=== PATIENT | male | born 1960 | race Caucasian/White ===

== ENCOUNTER 2017-06-09 12:14 | Emergency (ER) | payer BC, OTHER ==
[~2017-06-09] VITALS: Ht 175.3 cm; Wt 105.1 kg
[~2017-06-09 12:14] MED LIST: OMEG10007 PO
[2017-06-09 12:23] VITALS: TEMP 36.7; Ht 175.3 cm; Wt 105.1 kg
[2017-06-09] MEDS ORDERED: SODIUM CHLORIDE 0.9% 1000ML 1,000 ML IV STA (13:32)
[2017-06-09] MEDS ORDERED: KETOROLAC TROMETHAMINE 30 MG/ML VIAL IV STA (13:32)
[2017-06-09] MEDS ORDERED: ONDANSETRON INJ 2 MG/ML 2 ML VIAL IV STA (13:32)
[2017-06-09] MEDS ORDERED: ONDANSETRON 8 MG/54 ML D5W IV STA (13:32)
[2017-06-09 14:33] LABS: BASO % 0.2 %; BASO ABS # 0.03 K/uL (0-0.2); EOS % 0.3 %; EOS ABS # 0.04 K/uL (0-0.5); HEMATOCRIT 46.8 % (42-52); HEMOGLOBIN 16.2 g/dL (14.0-18.0); IG# 0.04 K/uL (0.00-0.02); LYMPH % 6.7 %; LYMPH ABS # 0.88 K/uL (1.2-3.4); MEAN CELL VOLUME 94.5 fL (80-100); MEAN CORPUSCULAR HEMOGLOBIN 32.7 pg (25-34); MEAN CORPUSCULAR HGB CONC 34.6 g/dl (32-36); MEAN PLATELET VOLUME 11.3 fL (7.4-10.4); MONO % 5.8 %; MONO ABS # 0.76 K/uL (0.11-0.59); NEUT % 86.7 %; NEUT ABS # 11.39 K/uL (1.4-6.5); PLATELET COUNT 193 K/uL (130-400); RED CELL DISTRIBUTION WIDTH CV 13.3 % (11.5-14.5); RED CELL DISTRIBUTION WIDTH SD 45.4 fL (36.4-46.3); WHITE BLOOD COUNT 13.14 K/uL (4.8-10.8)
[2017-06-09 14:51] LABS: ALBUMIN 4.6 gm/dl (3.4-5.0); CALCIUM 9.3 mg/dl (8.5-10.1); CREATININE 1.31 mg/dl (0.60-1.40)
--- NOTE | 2017-06-09 14:51 | DIAGNOSTIC IMAGING REPORT ---
[facility] CLINICAL HISTORY: Nephrolithiasis. FINDINGS: 2 AP supine abdominal radiographs are correlated with abdominal CT dated 01/08/2016. There is a nonobstructed abdominal bowel gas pattern. A 6 mm calcification projects over the proximal left ureter below the transverse process of L2. This likely represents an obstructing ureteral stone. At least 3 additional nonobstructing left renal calculi are identified measuring up to 4 mm. A 6 mm nonobstructing calculus is noted in the right kidney. Phleboliths are seen in the pelvis. The bony structures appear intact. IMPRESSION: 1. A 6 mm calculus projecting over the left proximal ureter likely represents an obstructing ureteral stone. 2. Additional bilateral nonobstructing renal calculi as above. Electronically signed by: Cristino Baez M.D. 06/09/2017 2:50 PM Dictated Date/Time: 06/09/2017 2:48 PM
[2017-06-09 14:54] LABS: TOTAL PROTEIN 7.4 gm/dl (6.4-8.2)
[2017-06-09] MEDS ORDERED: OXYC1TAB3 PO (15:15)
[2017-06-09] MEDS ORDERED: TAMS0.4C38 PO (15:15)
[2017-06-09 16:10] VITALS: BP 114/74; PULSE 74; O2SAT 96
--- NOTE | 2017-06-09 21:48 | EMERGENCY ROOM VISIT NOTE ---
History First contact with patient: 13:26 Chief Complaint: KIDNEY STONE Stated Complaint: KIDNEY STONE ON LEFT SIDE History of Present Illness The patient is a 57 year old male who presents to the Emergency Room with complaints of left-sided flank pain that started this morning between 730 and 8 AM. The patient reports that the pain initially was intermittent in nature, but is now constant. The patient is concerned that he has another kidney stone. The patient has had multiple stones in the past with his last stone approximately 2-1/2-3 years ago. The patient has seen Dr. Dennis in the past. The patient has had some nausea without vomiting. He denies any bloody urine or significant abdominal pain. He rates his discomfort a 5 out of 10. The patient denies any pain extending into the chest, shortness of breath or fever. He has no alleviating or aggravating factors for the pain. Review of Systems HEENT: Denies dizziness, visual problems, hearing loss, tinnitus. Denies difficulty swallowing or oral lesions. PULMONARY: Denies cough, shortness of breath, sputum production or hemoptysis. CARDIOVASCULAR: Denies chest pain, palpitations, dyspnea on exertion, orthopnea or peripheral edema. GASTROINTESTINAL: Denies diarrhea, constipation, nausea, vomiting, or abdominal pain. GENITOURINARY: Denies dysuria, frequency, urgency or nocturia. Otherwise see HPI. NEUROLOGIC: Denies history of epilepsy, CVA, TIA or chronic headaches. MUSCULOSKELETAL: Denies history of joint tenderness/swelling. SKIN: Denies rashes or lesions. PSYCHIATRIC: Denies history of depression or mental illness. ENDOCRINE: Denies history of diabetes or thyroid disorders. Past Medical/Surgical History Medical Problems: (1) Calculus Of Kidney With Calculus Of Ureter (2) Calculus Of Ureter (3) Dvrtclos Of Lg Int W/O Perforation Or Abscess W/O Bleeding (4) Other Hemorrhoids (5) Unilat Inguinal Hernia Surgical Problems: (1) No history of previous surgery Family History FH: heart disease FH: kidney disease Social History Smoking Status: Never Smoker Alcohol Use: none Marital Status: Occupation Status: employed Current/Historical Medications Scheduled Tamsulosin Hcl (Flomax), 0.4 MG PO DAILY Scheduled PRN Oxycodone Ir (Roxicodone Ir), 1-2 TAB PO Q4H PRN for Pain Physical Exam Vital Signs Date Time Temp Pulse Resp B/P (MAP) Pulse Ox O2 Delivery O2 Flow Rate FiO2 06/09/17 16:10 74 18 114/74 96 06/09/17 14:53 68 18 122/70 98 Room Air 06/09/17 12:23 36.7 80 20 126/84 97 Room Air Physical Exam CONSTITUTIONAL: Healthy and well nourished. Alert and oriented X 3 with positive affect. Patient appears in mild to moderate discomfort. HEENT: Normocephalic, atraumatic. Pupils equal, round and reactive. No scleral icterus or conjunctival injection. NECK: Full active range of motion without discomfort. RESPIRATORY: Clear to auscultation bilaterally with no wheezing, crackles, rhonchi or stridor. CARDIOVASCULAR: Regular rate and rhythm with no murmurs, rubs or gallops. GASTROINTESTINAL: Bowel sounds present in all quadrants. Patient has no anterior abdominal tenderness to palpation, including left lower quadrant tenderness. Negative CVA tenderness. MUSCULOSKELETAL: Full range of motion of all joints without discomfort. No tenderness to palpation through the posterior ribs or central lumbar spine, paraspinous muscles or SI joints. Range of motion of the back does not worsen discomfort. INTEGUMENTARY: No rash or other significant dermatologic conditions noted. HEMATOLOGIC: No ecchymosis or petechiae noted. NEUROLOGIC: No focal neurologic deficits noted. Medical Decision & Procedures ER Provider Diagnostic Interpretation: My interpretation of a KUB x-ray shows a 6 mm calculus in the left proximal ureter. Patient has additional bilateral renal calculi as discussed in the following radiologist report: KUB CLINICAL HISTORY: Nephrolithiasis. FINDINGS: 2 AP supine abdominal radiographs are correlated with abdominal CT dated 01/08/2016. There is a nonobstructed abdominal bowel gas pattern. A 6 mm calcification projects over the proximal left ureter below the transverse process of L2. This likely represents an obstructing ureteral stone. At least 3 additional nonobstructing left renal calculi are identified measuring up to 4 mm. A 6 mm nonobstructing calculus is noted in the right kidney. Phleboliths are seen in the pelvis. The bony structures appear intact. IMPRESSION: 1. A 6 mm calculus projecting over the left proximal ureter likely represents an obstructing ureteral stone. 2. Additional bilateral nonobstructing renal calculi as above. Laboratory Results 06/09/17 13:50 Red Blood Count 4.95, Mean Corpuscular Volume 94.5, Mean Corpuscular Hemoglobin 32.7, Mean Corpuscular Hemoglobin Concent 34.6, Mean Platelet Volume 11.3, Neutrophils (%) (Auto) 86.7, Lymphocytes (%) (Auto) 6.7, Monocytes (%) (Auto) 5.8, Eosinophils (%) (Auto) 0.3, Basophils (%) (Auto) 0.2, Neutrophils # (Auto) 11.39, Lymphocytes # (Auto) 0.88, Monocytes # (Auto) 0.76, Eosinophils # (Auto) 0.04, Basophils # (Auto) 0.03 06/09/17 13:50 Test 06/09/17 13:45 06/09/17 13:50 Urine Color DK YELLOW Urine Appearance CLEAR (CLEAR) Urine pH 5.0 (4.5-7.5) Urine Specific [place] 1.028 (1.000-1.030) Urine Protein TRACE (NEG) Urine Glucose (UA) NEG (NEG) Urine Ketones TRACE (NEG) Urine Occult Blood 3+ (NEG) Urine Nitrite NEG (NEG) Urine Bilirubin NEG (NEG) Urine Urobilinogen NEG (NEG) Urine Leukocyte Esterase NEG (NEG) Urine WBC (Auto) 1-5 /hpf (0-5) Urine RBC (Auto) 5-10 /hpf (0-4) Urine Hyaline Casts (Auto) 1-5 /lpf (0-5) Urine Epithelial Cells (Auto) 10-20 /lpf (0-5) Urine Bacteria (Auto) NEG (NEG) White Blood Count 13.14 K/uL (4.8-10.8) Red Blood Count 4.95 M/uL (4.7-6.1) Hemoglobin 16.2 g/dL (14.0-18.0) Hematocrit 46.8 % (42-52) Mean Corpuscular Volume 94.5 fL (80-100) Mean Corpuscular Hemoglobin 32.7 pg (25-34) Mean Corpuscular Hemoglobin Concent 34.6 g/dl (32-36) Platelet Count 193 K/uL (130-400) Mean Platelet Volume 11.3 fL (7.4-10.4) Neutrophils (%) (Auto) 86.7 % Lymphocytes (%) (Auto) 6.7 % Monocytes (%) (Auto) 5.8 % Eosinophils (%) (Auto) 0.3 % Basophils (%) (Auto) 0.2 % Neutrophils # (Auto) 11.39 K/uL (1.4-6.5) Lymphocytes # (Auto) 0.88 K/uL (1.2-3.4) Monocytes # (Auto) 0.76 K/uL (0.11-0.59) Eosinophils # (Auto) 0.04 K/uL (0-0.5) Basophils # (Auto) 0.03 K/uL (0-0.2) RDW Standard Deviation 45.4 fL (36.4-46.3) RDW Coefficient of Variation 13.3 % (11.5-14.5) Immature Granulocyte % (Auto) 0.3 % Immature Granulocyte # (Auto) 0.04 K/uL (0.00-0.02) Anion Gap 9.0 mmol/L (3-11) Est Creatinine Clear Calc Drug Dose 75.2 ml/min Estimated GFR () 70.0 Estimated GFR (Non- 60.4 BUN/Creatinine Ratio 12.4 (10-20) Calcium Level 9.3 mg/dl (8.5-10.1) Total Bilirubin 0.5 mg/dl (0.2-1) Aspartate Amino Transf (AST/SGOT) 25 U/L (15-37) Alanine Aminotransferase (ALT/SGPT) 30 U/L (12-78) Alkaline Phosphatase 47 U/L (45-117) Total Protein 7.4 gm/dl (6.4-8.2) Albumin 4.6 gm/dl (3.4-5.0) Globulin 2.8 gm/dl (2.5-4.0) Albumin/Globulin Ratio 1.7 (0.9-2) Lipase 99 U/L (73-393) The above labs were reviewed. Urinalysis is not suggestive of infection. Patient has a mild leukocytosis. Remaining electrolytes are otherwise grossly normal. LFTs and lipase are normal. Medications Administered Medications (Trade) Dose Ordered Sig/Ngoc Route Start Time Stop Time Status Last Admin Dose Admin Sodium Chloride 1,000 ml @ 999 mls/hr Q1H1M STAT IV 06/09/17 13:32 06/09/17 14:40 DC 06/09/17 13:59 999 MLS/HR Ketorolac Tromethamine (Toradol Inj) 30 mg NOW STAT IV 06/09/17 13:32 06/09/17 13:34 DC 06/09/17 14:04 30 MG Ondansetron HCl (Zofran 8mg Iv) 8 mg NOW STAT IV 06/09/17 13:32 06/09/17 13:34 DC 06/09/17 14:55 8 MG Ondansetron HCl (Zofran Inj) 4 mg NOW STAT IV 06/09/17 13:32 06/09/17 13:34 DC 06/09/17 14:04 4 MG ED Course Patient history and physical exam were performed. Nurse's notes were reviewed. Vital signs were reviewed and were normal. The patient appears in mild to moderate discomfort. IV access was established, and labs were drawn. The patient was hydrated with a liter normal saline, and was administered IV morphine, Toradol and Zofran for pain. The patient had complete resolution of his symptoms with these medications. Labs were reviewed to show no evidence for urinary tract infection. LFTs and lipase are normal. He has a mild leukocytosis. A KUB x-ray shows a 6 mm left proximal ureteral calculus, as well as bilateral intrarenal calculi. The patient reports that he has never captured a stone for analysis. A urine strainer was provided. The patient was also provided prescriptions for OxyIR 5 mg and Flomax. He was encouraged to increase fluid intake, and increase activity levels. Because of the size and location of his stone, I did suggest that he follow-up with his urologist for further management. He was instructed to return to the emergency department for uncontrollable pain, vomiting or developing fever. The patient was happy with plan of care, voiced understanding of all discharge instructions, and denied any pain or nausea at the time of discharge. Medical Decision Patient history, physical exam and x-ray findings are suggestive of pain secondary to a proximal left ureteral calculus. Urinalysis is not suggestive of infection. Clinical exam is not suggestive of acute appendicitis, cholecystitis or pyelonephritis. Laboratory studies are not suggestive of pancreatitis, hepatitis or urinary tract infection. [place] Drug Monitoring Program Search Results: patient reviewed within database, no issues identified Medication Reconcilliation Current Medication List: was personally reviewed by me Blood Pressure Screening Patient's blood pressure: Normal blood pressure Impression Primary Impression: Left ureteral calculus Additional Impression: Renal calculus, bilateral Departure Information Prescriptions Tamsulosin Hcl (FLOMAX) 0.4 Mg Cap 0.4 MG PO DAILY for 7 Days, #7 CAP Prov: Jewel Harris PA 06/09/17 Oxycodone Ir (Roxicodone Ir) 5 Mg Tab 1-2 TAB PO Q4H Y for Pain, #15 TAB For Initial Treatment Prov: Jewel Harris PA 06/09/17 Referrals No Doctor, Assigned (PCP) Patient Instructions [facility] Problem Qualifiers
== END 2017-06-09 16:20 | disposition home or self-care (01) ==
LOC: C.EDB 12:15 → C.EDA 16:20
DX: N20.2 Calculus of kidney with calculus of ureter (principal); Z84.1 Family history of disorders of kidney and ureter; Z79.899 Other long term (current) drug therapy